=== PATIENT | male | born 1970 | race Caucasian/White ===

== ENCOUNTER 2022-07-06 12:06 | Emergency (ER) | payer OTHER ==
[2022-07-06 13:01] LABS: #Eosinphils 0.1 thou/uL (0.0-0.7); #Lymphocytes 2.2 thou/uL (1.20-3.40); #Monocytes 0.5 thou/uL (0.11-0.59); #Neutrophils 4.9 thou/uL (1.40-6.50); %Basophils 0.3 % (0.0-1.0); %Eosinophils 1.2 % (0.0-10.0); %Lymphocytes 28.7 % (21.0-51.0); %Monocytes 6.6 % (0.0-10.0); %Neutrophils 63.2 % (42.0-75.0); Hemoglobin 14.8 g/dL (14.0-18.0); Mean Corpuscular HGB CONC 33.4 g/dL (32.0-36.0); Mean Corpuscular Hemoglobin 31.1 pg (27.0-31.0); Mean Corpuscular Volume 93.2 fL (78.0-98.0); Mean Platelet Volume 6.7 fL (7.4-10.4); Platelet Count 249 thou/uL (130-400); RBC Distribution Width 11.9 % (11.5-14.5); Red Blood Cell (RBC) Count 4.75 mill/uL (4.70-6.10); White Blood Cell (WBC) Count 7.7 thou/uL (4.8-10.8)
[2022-07-06 13:02] LABS: ALT (SGPT) 48 U/L (8-55); AST (SGOT) 44 U/L (5-34); Albumin 3.9 g/dL (3.5-5.0); Alkaline Phosphatase 116 U/L (40-110); Anion Gap 13 mmol/L (10-20); BUN (Urea Nitrogen) 13 mg/dL (8.4-25.7); Bilirubin, Total 0.2 mg/dL (0.2-1.2); Calc. Creatinine Clearance 0 mL/min (70-130); Calcium 9.4 mg/dL (7.8-10.44); Carbon Dioxide 23 mmol/L (22-29); Chloride 101 mmol/L (98-107); Estimated GFR 104; Globulin 4.8 g/dL (2.4-3.5); Glucose 217 mg/dL (70-105); Potassium 3.5 mmol/L (3.5-5.1); Protein, Total 8.7 g/dL (6.0-8.3); Sodium 133 mmol/L (136-145)
[2022-07-06 14:55] LABS: Bilirubin Negative (Negative); Blood, Urine Negative (Negative); Clarity Clear (Clear); Glucose, Urine (Dipstick) 70 mg/dL (Negative); Ketone, Urine Negative (Negative); Leukocyte Negative Leu/uL (Negative); Nitrite Negative (Negative); Protein, Urine (Dipstick) Negative (Neg-Trace); Specific Gravity, Urine 1.028 (1.002-1.036); Urobilinogen Normal mg/dL (Less than 2); pH, Urine 5.5 (5.0-9.0)
== END 2022-07-06 15:34 | disposition home or self-care (01) ==
LOC: ERS 12:06
DX: M54.6 Pain in thoracic spine (principal); E11.9 Type 2 diabetes mellitus without complications; E78.00 Pure hypercholesterolemia, unspecified; F17.210 Nicotine dependence, cigarettes, uncomplicated; Z86.73 Personal history of transient ischemic attack (TIA), and cerebral infarction without residual deficits; Z79.84 Long term (current) use of oral hypoglycemic drugs; Z79.899 Other long term (current) drug therapy
CPT/HCPCS: 36415; 71045; 74176; 80053; 81003; 85025; 93005

== ENCOUNTER 2023-05-11 18:28 | Inpatient (IN) | payer OTHER ==
[2023-05-11] MEDS ORDERED: Morphine 4 MG/ML VIAL ONE (19:21)
[2023-05-11] MEDS ORDERED: Ketorolac Tromethamine 30 MG/ML VIAL ONE (19:21)
[2023-05-11 20:27] LABS: #Eosinphils 0.1 thou/uL (0.0-0.7); #Monocytes 0.5 thou/uL (0.11-0.59); #Neutrophils 4.1 thou/uL (1.40-6.50); %Basophils 0.3 % (0.0-1.0); %Eosinophils 1.1 % (0.0-10.0); %Lymphocytes 33.8 % (21.0-51.0); %Monocytes 7.5 % (0.0-10.0); Hemoglobin 14.4 g/dL (14.0-18.0); Mean Corpuscular HGB CONC 34.3 g/dL (32.0-36.0); Mean Corpuscular Hemoglobin 30.8 pg (27.0-31.0); Mean Corpuscular Volume 89.9 fl (78.0-98.0); Mean Platelet Volume 8.9 fL (7.4-10.4); Platelet Count 228 10x3/uL (130-400); RBC Distribution Width 12.9 % (11.5-14.5); Red Blood Cell (RBC) Count 4.67 mill/uL (4.70-6.10); White Blood Cell (WBC) Count 7.2 10x3/uL (4.8-10.8)
[2023-05-11 21:00] LABS: ALT (SGPT) 30 U/L (8-55); AST (SGOT) 29 U/L (5-34); Albumin 3.9 g/dL (3.5-5.0); Alkaline Phosphatase 111 U/L (40-110); Anion Gap 11 mmol/L (10-20); BUN (Urea Nitrogen) 11 mg/dL (8.4-25.7); Bilirubin, Total 0.3 mg/dL (0.2-1.2); Calc. Creatinine Clearance 0 mL/min (70-130); Calcium 9.2 mg/dL (7.8-10.44); Carbon Dioxide 24 mmol/L (22-29); Chloride 104 mmol/L (98-107); Estimated GFR 106; Glucose 128 mg/dL (70-105); Potassium 3.9 mmol/L (3.5-5.1); Protein, Total 7.9 g/dL (6.0-8.3); Sodium 135 mmol/L (136-145)
[2023-05-11] MEDS ORDERED: Diazepam 10 MG/2 ML SYRINGE ONE (22:52)
[2023-05-11] MEDS ORDERED: Ondansetron PF 4 MG/2 ML Vial IVP PRN (23:27)
[2023-05-11] MEDS ORDERED: Acetaminophen 650 MG Suppository PR PRN (23:27)
[2023-05-11] MEDS ORDERED: Dextrose 5% in Water 1,000 ML IV PRN (23:27)
[2023-05-11] MEDS ORDERED: Ondansetron ODT 4 MG TAB PO PRN (23:27)
[2023-05-11] MEDS ORDERED: Acetaminophen 325 MG TAB PO PRN (23:27)
[2023-05-11] MEDS ORDERED: Dextrose 50% Abboject 50 ML SYRINGE SLOW IVP PRN (23:27)
[2023-05-11] MEDS ORDERED: Glucagon 1 MG/ML KIT IM PRN (23:27)
[2023-05-12] VITALS: BMI 38.5
[2023-05-12 06:56] LABS: #Eosinphils 0.1 thou/uL (0.0-0.7); #Monocytes 0.4 thou/uL (0.11-0.59); %Basophils 0.7 % (0.0-1.0); %Lymphocytes 43.5 % (21.0-51.0); %Monocytes 9.2 % (0.0-10.0); %Neutrophils 44.4 % (42.0-75.0); Hematocrit 41.8 % (42.0-52.0); Mean Corpuscular HGB CONC 33.5 g/dL (32.0-36.0); Mean Corpuscular Hemoglobin 30.8 pg (27.0-31.0); Mean Corpuscular Volume 92.1 fl (78.0-98.0); Mean Platelet Volume 9.3 fL (7.4-10.4); Platelet Count 208 10x3/uL (130-400); Red Blood Cell (RBC) Count 4.54 mill/uL (4.70-6.10); White Blood Cell (WBC) Count 4.4 10x3/uL (4.8-10.8)
[2023-05-12 07:20] LABS: Anion Gap 10 mmol/L (10-20); BUN (Urea Nitrogen) 14 mg/dL (8.4-25.7); Calc. Creatinine Clearance 203 mL/min (70-130); Calcium 9.1 mg/dL (7.8-10.44); Carbon Dioxide 29 mmol/L (22-29); Chloride 103 mmol/L (98-107); Estimated GFR 105; Glucose 130 mg/dL (70-105); Potassium 3.5 mmol/L (3.5-5.1); Sodium 138 mmol/L (136-145)
[2023-05-12] MEDS: Morphine 4 MG/ML VIAL SLOW IVP PRN (20:57)
[2023-05-12] MEDS: traZODone HCl 50 MG TAB PO SCH (20:58)
[2023-05-12] MEDS: Atorvastatin Calcium 40 MG TAB PO SCH (20:59)
[2023-05-12] MEDS: HumaLOG 300 UNITS/3 ML VIAL SC PRN (21:03)
[2023-05-13] MEDS: Levothyroxine Sodium 25 MCG TAB PO SCH (05:15)
[2023-05-13] MEDS: Levothyroxine Sodium 112 MCG TAB PO SCH (05:15)
[2023-05-13] MEDS: Morphine 4 MG/ML VIAL SLOW IVP PRN ×3 (05:19→21:32)
[2023-05-13] MEDS: Citalopram 20 MG TAB PO SCH (08:43)
[2023-05-13] MEDS: Methocarbamol 500 MG TAB PO SCH (08:43)
[2023-05-13] MEDS: Furosemide 20 MG TAB PO SCH (08:43)
[2023-05-13] MEDS ORDERED: Non-Formulary Item 1 EACH (Levothyroxine Sodium [Levothyroxine Sodium] 137 MCG Tablet) PO SCH (09:00)
[2023-05-13] MEDS: methylPREDNISolone Sod Succ 40 MG VIAL IVP SCH (21:19)
[2023-05-13] MEDS: Atorvastatin Calcium 40 MG TAB PO SCH (21:23)
[2023-05-13] MEDS: traZODone HCl 50 MG TAB PO SCH (21:23)
[2023-05-13] MEDS: HumaLOG 300 UNITS/3 ML VIAL SC PRN (21:25)
[2023-05-13] MEDS: Ketorolac Tromethamine 30 MG/ML VIAL IVP PRN (21:32)
[2023-05-14] MEDS: methylPREDNISolone Sod Succ 40 MG VIAL IVP SCH ×4 (00:18→18:53)
[2023-05-14] MEDS: Levothyroxine Sodium 112 MCG TAB PO SCH (05:30)
[2023-05-14] MEDS: Levothyroxine Sodium 25 MCG TAB PO SCH (05:30)
[2023-05-14] MEDS: Ketorolac Tromethamine 30 MG/ML VIAL IVP PRN ×2 (05:30→20:17)
[2023-05-14] MEDS: HumaLOG 300 UNITS/3 ML VIAL SC PRN ×4 (05:31→20:21)
[2023-05-14] MEDS: Furosemide 20 MG TAB PO SCH (09:38)
[2023-05-14] MEDS: Citalopram 20 MG TAB PO SCH (09:38)
[2023-05-14] MEDS: Methocarbamol 500 MG TAB PO SCH (13:06)
[2023-05-14] MEDS: traZODone HCl 50 MG TAB PO SCH (20:17)
[2023-05-14] MEDS: Atorvastatin Calcium 40 MG TAB PO SCH (20:18)
[2023-05-15] MEDS: methylPREDNISolone Sod Succ 40 MG VIAL IVP SCH ×4 (00:28→18:22)
[2023-05-15] MEDS: Levothyroxine Sodium 112 MCG TAB PO SCH (05:17)
[2023-05-15] MEDS: Levothyroxine Sodium 25 MCG TAB PO SCH (05:17)
[2023-05-15] MEDS: HumaLOG 300 UNITS/3 ML VIAL SC PRN ×4 (05:18→21:34)
[2023-05-15] MEDS: Furosemide 20 MG TAB PO SCH (08:37)
[2023-05-15] MEDS: Citalopram 20 MG TAB PO SCH (08:37)
[2023-05-15] MEDS: Methocarbamol 500 MG TAB PO SCH (08:37)
[2023-05-15] MEDS: Ketorolac Tromethamine 30 MG/ML VIAL IVP PRN (12:01)
[2023-05-15] MEDS: Ketorolac Tromethamine 30 MG/ML VIAL IVP SCH (18:22)
[2023-05-15] MEDS: Morphine 4 MG/ML VIAL SLOW IVP PRN (21:25)
[2023-05-15] MEDS: traZODone HCl 50 MG TAB PO SCH (21:31)
[2023-05-15] MEDS: Atorvastatin Calcium 40 MG TAB PO SCH (21:33)
[2023-05-15] MEDS: metFORMIN 500 MG TAB PO SCH (21:33)
[2023-05-16] MEDS: methylPREDNISolone Sod Succ 40 MG VIAL IVP SCH ×3 (00:15→13:43)
[2023-05-16] MEDS: Ketorolac Tromethamine 30 MG/ML VIAL IVP SCH ×3 (00:15→13:42)
[2023-05-16] MEDS: Levothyroxine Sodium 112 MCG TAB PO SCH (05:44)
[2023-05-16] MEDS: Levothyroxine Sodium 25 MCG TAB PO SCH (05:44)
[2023-05-16] MEDS: HumaLOG 300 UNITS/3 ML VIAL SC PRN ×2 (06:22→13:43)
[2023-05-16 07:58] VITALS: BP 125/78; TEMP 97.9
[2023-05-16] MEDS: Citalopram 20 MG TAB PO SCH (09:27)
[2023-05-16] MEDS: Furosemide 20 MG TAB PO SCH (09:27)
[2023-05-16] MEDS: metFORMIN 500 MG TAB PO SCH (09:27)
[2023-05-16] MEDS: Methocarbamol 500 MG TAB PO SCH (09:28)
== END 2023-05-16 15:16 | disposition home or self-care (01) | DRG 552 ==
LOC: ERS 18:28 → T4-B 22:48 → OBSVTOIN 05-12 13:27
PROVIDERS: ADMIT Student in an Organized Health Care Education/Training Program; ATTEND Family Medicine
DX: M47.16 Other spondylosis with myelopathy, lumbar region (principal); E87.1 Hypo-osmolality and hyponatremia; E11.42 Type 2 diabetes mellitus with diabetic polyneuropathy; G89.29 Other chronic pain; F15.10 Other stimulant abuse, uncomplicated; F10.90 Alcohol use, unspecified, uncomplicated; F17.210 Nicotine dependence, cigarettes, uncomplicated; E03.9 Hypothyroidism, unspecified; E66.01 Morbid (severe) obesity due to excess calories; R56.9 Unspecified convulsions; M51.36 Other intervertebral disc degeneration, lumbar region; Z91.018 Allergy to other foods; Z79.890 Hormone replacement therapy; Z79.899 Other long term (current) drug therapy; Z98.890 Other specified postprocedural states; Z86.73 Personal history of transient ischemic attack (TIA), and cerebral infarction without residual deficits; Z68.38 Body mass index [BMI] 38.0-38.9, adult; Z79.84 Long term (current) use of oral hypoglycemic drugs; E78.00 Pure hypercholesterolemia, unspecified
CPT/HCPCS: 36415; 36416; 72100; 72131; 80048; 80053; 85025; 96372; G0378; J1650; J1815; J1885; J2270; J2920; J3360

== ENCOUNTER 2023-07-15 09:53 | Inpatient (IN) | payer OTHER ==
[2023-07-15 11:20] LABS: ALT (SGPT) 47 U/L (8-55); AST (SGOT) 45 U/L (5-34); Albumin 4.3 g/dL (3.5-5.0); Alkaline Phosphatase 128 U/L (40-110); Anion Gap 14 mmol/L (10-20); BUN (Urea Nitrogen) 14 mg/dL (8.4-25.7); Bilirubin, Total 0.2 mg/dL (0.2-1.2); Calc. Creatinine Clearance 0 mL/min (70-130); Carbon Dioxide 23 mmol/L (22-29); Estimated GFR 98; Globulin 3.3 g/dL (2.4-3.5); Potassium 4.5 mmol/L (3.5-5.1); Protein, Total 7.6 g/dL (6.0-8.3)
[2023-07-15 11:21] LABS: Troponin I Less than 0.010 ng/mL (< 0.028)
[2023-07-15 11:26] LABS: Chloride 98 mmol/L (98-107); Glucose 486 mg/dL (70-105); Sodium 130 mmol/L (136-145)
[2023-07-15 11:30] LABS: #Eosinphils 0.1 thou/uL (0.0-0.7); #Monocytes 0.4 thou/uL (0.11-0.59); #Neutrophils 3.8 thou/uL (1.40-6.50); %Basophils 0.3 % (0.0-1.0); %Lymphocytes 28.2 % (21.0-51.0); %Monocytes 7.1 % (0.0-10.0); %Neutrophils 63.1 % (42.0-75.0); Hematocrit 42.8 % (42.0-52.0); Hemoglobin 15.1 g/dL (14.0-18.0); Mean Corpuscular HGB CONC 35.3 g/dL (32.0-36.0); Mean Corpuscular Hemoglobin 31.5 pg (27.0-31.0); Mean Corpuscular Volume 89.2 fl (78.0-98.0); Mean Platelet Volume 9.4 fL (7.4-10.4); Platelet Count 211 10x3/uL (130-400); RBC Distribution Width 12.3 % (11.5-14.5); White Blood Cell (WBC) Count 6.1 10x3/uL (4.8-10.8)
[2023-07-15] MEDS ORDERED: Iopamidol-370 76% 500 ML MDV (1 ML CHARGE) ONE ×2 (14:03→14:16)
[2023-07-15] MEDS ORDERED: fentaNYL 50 mcg/mL 1 mL Vial ONE (14:19)
[2023-07-15] MEDS ORDERED: Aspirin Chewable 81 MG TAB ONE (15:27)
[2023-07-15] MEDS ORDERED: HYDROmorphone 0.5 MG/0.5 ML SYRINGE ONE (15:58)
[2023-07-15] MEDS ORDERED: Acetaminophen 325 MG TAB PO PRN (17:09)
[2023-07-15] MEDS ORDERED: Ondansetron PF 4 MG/2 ML Vial IVP PRN (17:09)
[2023-07-15] MEDS ORDERED: Ondansetron ODT 4 MG TAB PO PRN (17:09)
[2023-07-15] MEDS ORDERED: HumaLOG 300 UNITS/3 ML VIAL SC PRN (17:48)
[2023-07-15] MEDS ORDERED: Dextrose 5% in Water 1,000 ML IV PRN (17:48)
[2023-07-15] MEDS ORDERED: Glucagon 1 MG/ML KIT IM PRN (17:48)
[2023-07-15] MEDS ORDERED: Dextrose 50% Abboject 50 ML SYRINGE SLOW IVP PRN (17:48)
[2023-07-15 18:33] VITALS: BMI 38.5
[2023-07-15] MEDS: Lactated Ringer's 1,000 ML IV SCH ×2 (19:02→20:55)
[2023-07-15] MEDS: Nicotine 14 MG PATCH TD SCH ×2 (19:03→21:54)
[2023-07-15] MEDS: Senokot S 8.6-50 MG TAB PO SCH (20:53)
[2023-07-15] MEDS: Famotidine 20 MG TAB PO SCH (20:54)
[2023-07-15] MEDS: traZODone HCl 50 MG TAB PO SCH (20:54)
[2023-07-15] MEDS ORDERED: Insulin Glargine 30 UNITS/0.3 ML VIAL SC SCH (21:00)
[2023-07-15] MEDS ORDERED: Atorvastatin Calcium 40 MG TAB PO SCH (21:00)
[2023-07-15] MEDS: Morphine 4 MG/ML VIAL SLOW IVP PRN (21:15)
[2023-07-16 04:23] LABS: #Eosinphils 0.1 thou/uL (0.0-0.7); #Monocytes 0.5 thou/uL (0.11-0.59); #Neutrophils 3.7 thou/uL (1.40-6.50); %Basophils 0.5 % (0.0-1.0); %Eosinophils 1.5 % (0.0-10.0); %Monocytes 8.4 % (0.0-10.0); %Neutrophils 59.3 % (42.0-75.0); Hematocrit 41.8 % (42.0-52.0); Hemoglobin 14.6 g/dL (14.0-18.0); Mean Corpuscular HGB CONC 34.9 g/dL (32.0-36.0); Mean Corpuscular Hemoglobin 31.6 pg (27.0-31.0); Mean Corpuscular Volume 90.5 fl (78.0-98.0); Mean Platelet Volume 9.1 fL (7.4-10.4); Platelet Count 194 10x3/uL (130-400); RBC Distribution Width 12.4 % (11.5-14.5); Red Blood Cell (RBC) Count 4.62 mill/uL (4.70-6.10); White Blood Cell (WBC) Count 6.2 10x3/uL (4.8-10.8)
[2023-07-16] MEDS: Morphine 4 MG/ML VIAL SLOW IVP PRN (04:48)
[2023-07-16] MEDS: Levothyroxine Sodium 112 MCG TAB PO SCH (04:49)
[2023-07-16] MEDS: Levothyroxine Sodium 25 MCG TAB PO SCH (04:49)
[2023-07-16 04:57] LABS: Anion Gap 11 mmol/L (10-20); BUN (Urea Nitrogen) 13 mg/dL (8.4-25.7); Calc. Creatinine Clearance 214 mL/min (70-130); Calcium 9.1 mg/dL (7.8-10.44); Carbon Dioxide 27 mmol/L (22-29); Chloride 99 mmol/L (98-107); Estimated GFR 107; Glucose 281 mg/dL (70-105); Potassium 3.6 mmol/L (3.5-5.1); Sodium 133 mmol/L (136-145)
[2023-07-16] MEDS: Bupropion 150 MG SR.TAB PO SCH (07:36)
[2023-07-16] MEDS: Furosemide 20 MG TAB PO SCH (07:37)
[2023-07-16] MEDS: Famotidine 20 MG TAB PO SCH ×2 (07:37→21:09)
[2023-07-16] MEDS: Citalopram 20 MG TAB PO SCH (07:37)
[2023-07-16] MEDS: HYDROcodone/Acetaminophen 10/325 mg Tablet PO PRN ×2 (07:38→21:07)
[2023-07-16] MEDS: Senokot S 8.6-50 MG TAB PO SCH ×2 (07:39→21:07)
[2023-07-16] MEDS: Lactated Ringer's 1,000 ML IV SCH ×2 (07:42→21:14)
[2023-07-16] MEDS ORDERED: Insulin Glargine 30 UNITS/0.3 ML VIAL SC SCH ×3 (08:10→21:00)
[2023-07-16] MEDS ORDERED: Non-Formulary Item 1 EACH (Levothyroxine Sodium [Levothyroxine Sodium] 137 MCG Tablet) PO SCH (09:00)
[2023-07-16] MEDS ORDERED: Methocarbamol 500 MG TAB PO SCH (09:00)
[2023-07-16 09:51] LABS: Troponin I Less than 0.010 ng/mL (< 0.028)
[2023-07-16] MEDS ORDERED: traZODone HCl 50 MG TAB PO PRN (12:45)
[2023-07-16] MEDS: Gabapentin 100 MG CAP PO SCH ×2 (13:36→21:08)
[2023-07-16] MEDS: Methocarbamol 500 MG TAB PO SCH ×3 (13:36→21:08)
[2023-07-16] MEDS: HumaLOG 300 UNITS/3 ML VIAL SC PRN ×2 (13:38→17:06)
[2023-07-16] MEDS: Nicotine 14 MG PATCH TD SCH (17:06)
[2023-07-16 17:30] LABS: Troponin I Less than 0.010 ng/mL (< 0.028)
[2023-07-16] MEDS: Atorvastatin Calcium 10 MG TAB PO SCH (21:09)
[2023-07-16] MEDS: traZODone HCl 50 MG TAB PO SCH (21:09)
[2023-07-16] MEDS: Heparin 5,000 UNITS/ML VIAL SC SCH (21:13)
[2023-07-17] MEDS: HYDROcodone/Acetaminophen 10/325 mg Tablet PO PRN (02:30)
[2023-07-17] MEDS: Levothyroxine Sodium 25 MCG TAB PO SCH (05:20)
[2023-07-17] MEDS: Levothyroxine Sodium 112 MCG TAB PO SCH (05:20)
[2023-07-17 06:21] LABS: #Eosinphils 0.1 thou/uL (0.0-0.7); #Monocytes 0.5 thou/uL (0.11-0.59); #Neutrophils 3.2 thou/uL (1.40-6.50); %Basophils 0.7 % (0.0-1.0); %Eosinophils 1.2 % (0.0-10.0); %Lymphocytes 32.5 % (21.0-51.0); %Monocytes 9.2 % (0.0-10.0); Hematocrit 42.6 % (42.0-52.0); Hemoglobin 14.9 g/dL (14.0-18.0); Mean Corpuscular Hemoglobin 31.2 pg (27.0-31.0); Mean Corpuscular Volume 89.1 fl (78.0-98.0); Mean Platelet Volume 9.2 fL (7.4-10.4); Platelet Count 205 10x3/uL (130-400); RBC Distribution Width 12.1 % (11.5-14.5); Red Blood Cell (RBC) Count 4.78 mill/uL (4.70-6.10); White Blood Cell (WBC) Count 5.7 10x3/uL (4.8-10.8)
[2023-07-17 06:48] LABS: Anion Gap 14 mmol/L (10-20); BUN (Urea Nitrogen) 13 mg/dL (8.4-25.7); Calc. Creatinine Clearance 208 mL/min (70-130); Calcium 8.7 mg/dL (7.8-10.44); Carbon Dioxide 24 mmol/L (22-29); Chloride 100 mmol/L (98-107); Estimated GFR 106; Glucose 230 mg/dL (70-105); Potassium 4.1 mmol/L (3.5-5.1); Sodium 134 mmol/L (136-145)
[2023-07-17] MEDS: Morphine 4 MG/ML VIAL SLOW IVP PRN ×2 (08:29→14:40)
[2023-07-17] MEDS: Heparin 5,000 UNITS/ML VIAL SC SCH (08:43)
[2023-07-17] MEDS ORDERED: Famotidine/PF 20 mg/2ml Vial SLOW IVP SCH (08:45)
[2023-07-17] MEDS ORDERED: diphenhydrAMINE 50 MG/ML VIAL IVP SCH (08:45)
[2023-07-17] MEDS ORDERED: EPINEPHrine 1 MG/ML AMP IM SCH (09:00)
[2023-07-17] MEDS ORDERED: Gabapentin 300 MG CAP PO SCH (09:00)
[2023-07-17] MEDS ORDERED: Oxymetazoline HCl 0.05% (30 ML BOT) NS PRN (09:10)
[2023-07-17] MEDS: Famotidine 20 MG TAB PO SCH ×2 (09:15→21:00)
[2023-07-17] MEDS: Senokot S 8.6-50 MG TAB PO SCH ×2 (09:32→21:00)
[2023-07-17] MEDS: Insulin Glargine 30 UNITS/0.3 ML VIAL SC SCH ×2 (11:06→20:58)
[2023-07-17] MEDS: Methocarbamol 500 MG TAB PO SCH ×4 (11:06→20:59)
[2023-07-17] MEDS: Lactated Ringer's 1,000 ML IV SCH ×2 (11:06→22:57)
[2023-07-17] MEDS: Citalopram 20 MG TAB PO SCH (11:16)
[2023-07-17] MEDS: Bupropion 150 MG SR.TAB PO SCH (14:37)
[2023-07-17] MEDS: Lisinopril 2.5 MG TAB PO SCH (14:37)
[2023-07-17] MEDS: Furosemide 20 MG TAB PO SCH (14:37)
[2023-07-17] MEDS: Hydrochlorothiazide 25 MG TAB PO SCH (14:37)
[2023-07-17] MEDS: Nicotine 14 MG PATCH TD SCH (17:23)
[2023-07-17] MEDS: traZODone HCl 50 MG TAB PO SCH (20:57)
[2023-07-17] MEDS: Atorvastatin Calcium 10 MG TAB PO SCH (20:59)
[2023-07-18] MEDS: Levothyroxine Sodium 112 MCG TAB PO SCH (06:10)
[2023-07-18] MEDS: Levothyroxine Sodium 25 MCG TAB PO SCH (06:10)
[2023-07-18] MEDS ORDERED: Iopamidol-370 76% 500 ML MDV (1 ML CHARGE) ONE (09:43)
[2023-07-18] MEDS: HYDROcodone/Acetaminophen 10/325 mg Tablet PO PRN ×2 (12:24→17:52)
[2023-07-18] MEDS ORDERED: Furosemide 20 MG TAB PO SCH (12:30)
[2023-07-18] MEDS ORDERED: Insulin Glargine 30 UNITS/0.3 ML VIAL SC SCH (12:30)
[2023-07-18] MEDS ORDERED: Hydrochlorothiazide 25 MG TAB PO SCH (12:30)
[2023-07-18] MEDS: Methocarbamol 500 MG TAB PO SCH ×4 (12:30→20:29)
[2023-07-18] MEDS ORDERED: Bupropion 150 MG SR.TAB PO SCH (12:30)
[2023-07-18] MEDS: Bupropion 150 MG SR.TAB PO SCH (12:30)
[2023-07-18] MEDS ORDERED: Lisinopril 2.5 MG TAB PO SCH (12:30)
[2023-07-18] MEDS ORDERED: Citalopram 20 MG TAB PO SCH (12:30)
[2023-07-18] MEDS: Senokot S 8.6-50 MG TAB PO SCH ×2 (12:31→20:29)
[2023-07-18] MEDS: Citalopram 20 MG TAB PO SCH (12:31)
[2023-07-18] MEDS: Furosemide 20 MG TAB PO SCH (12:31)
[2023-07-18] MEDS: Hydrochlorothiazide 25 MG TAB PO SCH (12:31)
[2023-07-18] MEDS: Lisinopril 2.5 MG TAB PO SCH (12:32)
[2023-07-18] MEDS: Famotidine 20 MG TAB PO SCH ×2 (12:32→20:28)
[2023-07-18] MEDS: Insulin Glargine 30 UNITS/0.3 ML VIAL SC SCH ×2 (12:32→20:28)
[2023-07-18] MEDS: Lactated Ringer's 1,000 ML IV SCH (17:50)
[2023-07-18] MEDS: Nicotine 14 MG PATCH TD SCH (17:50)
[2023-07-18] MEDS: traZODone HCl 50 MG TAB PO SCH (20:28)
[2023-07-18] MEDS: Atorvastatin Calcium 10 MG TAB PO SCH (20:28)
[2023-07-19 05:06] LABS: #Eosinphils 0.1 thou/uL (0.0-0.7); #Monocytes 0.6 thou/uL (0.11-0.59); #Neutrophils 3.6 thou/uL (1.40-6.50); %Basophils 0.3 % (0.0-1.0); %Eosinophils 1.5 % (0.0-10.0); %Lymphocytes 30.1 % (21.0-51.0); %Monocytes 9.2 % (0.0-10.0); %Neutrophils 58.3 % (42.0-75.0); Hematocrit 44.2 % (42.0-52.0); Hemoglobin 15.6 g/dL (14.0-18.0); Mean Corpuscular HGB CONC 35.3 g/dL (32.0-36.0); Mean Corpuscular Hemoglobin 31.1 pg (27.0-31.0); Mean Platelet Volume 9.2 fL (7.4-10.4); Platelet Count 208 10x3/uL (130-400); RBC Distribution Width 12.3 % (11.5-14.5); Red Blood Cell (RBC) Count 5.02 mill/uL (4.70-6.10); White Blood Cell (WBC) Count 6.2 10x3/uL (4.8-10.8)
[2023-07-19 05:31] LABS: Anion Gap 14 mmol/L (10-20); BUN (Urea Nitrogen) 11 mg/dL (8.4-25.7); Calc. Creatinine Clearance 206 mL/min (70-130); Calcium 9.5 mg/dL (7.8-10.44); Carbon Dioxide 26 mmol/L (22-29); Chloride 98 mmol/L (98-107); Estimated GFR 106; Glucose 223 mg/dL (70-105); Potassium 3.5 mmol/L (3.5-5.1); Sodium 134 mmol/L (136-145)
[2023-07-19] MEDS: Levothyroxine Sodium 25 MCG TAB PO SCH (06:08)
[2023-07-19] MEDS: Levothyroxine Sodium 112 MCG TAB PO SCH (06:08)
[2023-07-19 08:07] VITALS: BP 129/59; TEMP 98.4
[2023-07-19] MEDS: Hydrochlorothiazide 25 MG TAB PO SCH (08:22)
[2023-07-19] MEDS: Famotidine 20 MG TAB PO SCH (08:22)
[2023-07-19] MEDS: Furosemide 20 MG TAB PO SCH (08:22)
[2023-07-19] MEDS: Methocarbamol 500 MG TAB PO SCH (08:23)
[2023-07-19] MEDS: Bupropion 150 MG SR.TAB PO SCH (08:23)
[2023-07-19] MEDS: HYDROcodone/Acetaminophen 10/325 mg Tablet PO PRN (08:23)
[2023-07-19] MEDS: Lisinopril 2.5 MG TAB PO SCH (08:23)
[2023-07-19] MEDS: Insulin Glargine 30 UNITS/0.3 ML VIAL SC SCH (08:24)
[2023-07-19] MEDS: Senokot S 8.6-50 MG TAB PO SCH (08:24)
[2023-07-19] MEDS: Citalopram 20 MG TAB PO SCH (08:24)
[2023-07-20 05:14] LABS: QuantiFERON-TB Gold Plus POSITIVE (Negative)
[2023-07-21 15:15] LABS: Brucella IgM Ab Negative (Negative)
[2023-07-21 19:36] LABS: Histoplasma Abs, Quant, DID Negative (Neg:<1:1)
== END 2023-07-19 12:10 | disposition home or self-care (01) | DRG 566 ==
LOC: ERS 09:53 → 2SW 15:59 → OBSVTOIN 07-18 18:43
PROVIDERS: ADMIT Hospitalist; ATTEND Hospitalist
DX: M89.8X8 Other specified disorders of bone, other site (principal); E11.40 Type 2 diabetes mellitus with diabetic neuropathy, unspecified; E78.5 Hyperlipidemia, unspecified; F17.210 Nicotine dependence, cigarettes, uncomplicated; M54.50 Low back pain, unspecified; E03.9 Hypothyroidism, unspecified; G89.29 Other chronic pain; Z86.73 Personal history of transient ischemic attack (TIA), and cerebral infarction without residual deficits; Z91.018 Allergy to other foods; Z79.890 Hormone replacement therapy; Z79.899 Other long term (current) drug therapy; Z79.84 Long term (current) use of oral hypoglycemic drugs; Z98.890 Other specified postprocedural states; Z86.711 Personal history of pulmonary embolism; Z71.6 Tobacco abuse counseling
CPT/HCPCS: 0042T; 36415; 36416; 70450; 70496; 70498; 71260; 71275; 72125; 72128; 74174; 74177; 78306; 80048; 80053; 84484; 85025; 86140; 86480; 86622; 86698; 87040; 87385; 93005; 93306; 96372; 96374; 96375; 96376; A9503; G0378; J0171; J1170; J1200; J1644; J1815; J2270; J2405; J3010; J7120; Q9967; S0028

== ENCOUNTER 2024-04-14 13:00 | Inpatient (IN) | payer OTHER ==
[~2024-04-14 13:00] MED LIST: Iopamidol-370 76% 500 ML MDV (1 ML CHARGE) ONE
[2024-04-14 13:54] LABS: #Basophils Less than 0.03 10x3/uL (0.0-0.2); %Basophils 0.4 % (0.0-1.0); %Eosinophils 1.1 % (0.0-10.0); %Monocytes 7.5 % (0.0-10.0); %Neutrophils 50.6 % (42.0-75.0); Hematocrit 43.2 % (42.0-52.0); Hemoglobin 14.9 g/dL (14.0-18.0); Mean Corpuscular HGB CONC 34.5 g/dL (32.0-36.0); Mean Corpuscular Hemoglobin 30.8 pg (27.0-31.0); Mean Corpuscular Volume 89.4 fL (78.0-98.0); Mean Platelet Volume 9.2 fL (7.4-10.4); Platelet Count 194 10x3/uL (130-400); RBC Distribution Width 12.2 % (11.5-14.5); Red Blood Cell (RBC) Count 4.83 mill/uL (4.70-6.10)
[2024-04-14] MEDS ORDERED: Aspirin Chewable 81 MG TAB ONE (14:01)
[2024-04-14 14:04] LABS: ALT (SGPT) 28 U/L (8-55); AST (SGOT) 31 U/L (5-34); Albumin 3.7 g/dL (3.5-5.0); Alkaline Phosphatase 93 U/L (40-110); Anion Gap 11 mmol/L (10-20); BUN (Urea Nitrogen) 10 mg/dL (8.4-25.7); Bilirubin, Total 0.6 mg/dL (0.2-1.2); CK (CPK) 101 U/L (30-200); Calc. Creatinine Clearance 0 mL/min (70-130); Calcium 9.1 mg/dL (7.8-10.44); Carbon Dioxide 24 mmol/L (22-29); Chloride 106 mmol/L (98-107); Estimated GFR 104; Globulin 3.6 g/dL (2.4-3.5); Glucose 147 mg/dL (70-105); Potassium 3.7 mmol/L (3.5-5.1); Protein, Total 7.3 g/dL (6.0-8.3); Sodium 137 mmol/L (136-145)
[2024-04-14 14:09] LABS: Troponin I 0.014 ng/mL (< 0.028)
[2024-04-14 14:14] LABS: PTT 26.8 sec (22.9-36.1); Prothrombin Time 13.4 sec (12.0-14.7)
[2024-04-14] MEDS ORDERED: hydrALAZINE 20 MG/ML VIAL SLOW IVP PRN (14:28)
[2024-04-14 14:42] LABS: Bacteria/HPF None Seen HPF (None Seen); Bilirubin Negative (Negative); Blood, Urine Negative (Negative); CAUTI Indications for Culture Immunosuppressed; Clarity Clear (Clear); Glucose, Urine (Dipstick) Greater than 1000 mg/dL (Negative); Ketone, Urine Negative (Negative); Leukocyte Negative Leu/uL (Negative); Nitrite Negative (Negative); Protein, Urine (Dipstick) Negative (Neg-Trace); RBC/HPF 0-3 HPF (0-3); Squamous Epithelial 0-3 HPF (0-3); WBC/HPF 0-3 HPF (0-3); pH, Urine 6.5 (5.0-9.0)
[2024-04-14 14:43] LABS: Specific Gravity, Urine 1.046 (1.002-1.036)
[2024-04-14 14:44] LABS: Urine Culture Reflex Yes Yes
[2024-04-14 14:46] LABS: Amphetamine Detected (NotDetected); Barbiturates Screen Not Detected (NotDetected); Benzodiazepine Screen Not Detected (NotDetected); Cocaine Metabolite Screen Not Detected (NotDetected); Methadone Not Detected (NotDetected); Methamphetamine Detected (NotDetected); Opiate Screen Not Detected (NotDetected); Oxycodone Screen Not Detected (NotDetected); Phencyclidine (PCP) Not Detected (NotDetected); THC/Cannabinoid Screen Not Detected (NotDetected); Tricyclic Screen Not Detected (NotDetected)
[2024-04-14 15:09] LABS: Hemoglobin A1c 9.3 % (4.0-6.0)
[2024-04-14 15:11] LABS: Cardiac Risk 5.2 (Less than 4.5)
[2024-04-14] MEDS ORDERED: Acetaminophen/Codeine 30-300mg Tablet ONE (15:44)
[2024-04-14] MEDS: Acetaminophen/Codeine 30-300mg Tablet PO PRN (15:48)
[2024-04-14 16:14] VITALS: BMI 35.7
[2024-04-14] MEDS: Acetaminophen 325 MG TAB PO SCH (20:14)
[2024-04-14] MEDS: Famotidine 20 MG TAB PO SCH (20:16)
[2024-04-14] MEDS: Atorvastatin Calcium 40 MG TAB PO SCH (20:16)
[2024-04-15 04:15] LABS: #Basophils 0.03 10x3/uL (0.0-0.2); %Basophils 0.6 % (0.0-1.0); %Lymphocytes 38.3 % (21.0-51.0); %Neutrophils 51.9 % (42.0-75.0); Hematocrit 40.4 % (42.0-52.0); Hemoglobin 13.9 g/dL (14.0-18.0); Mean Corpuscular HGB CONC 34.4 g/dL (32.0-36.0); Mean Corpuscular Hemoglobin 30.5 pg (27.0-31.0); Mean Corpuscular Volume 88.6 fL (78.0-98.0); Mean Platelet Volume 9.3 fL (7.4-10.4); Platelet Count 172 10x3/uL (130-400); RBC Distribution Width 12.3 % (11.5-14.5); Red Blood Cell (RBC) Count 4.56 mill/uL (4.70-6.10)
[2024-04-15 04:30] LABS: Anion Gap 9 mmol/L (10-20); BUN (Urea Nitrogen) 9 mg/dL (8.4-25.7); Calc. Creatinine Clearance 188 mL/min (70-130); Calcium 9.1 mg/dL (7.8-10.44); Carbon Dioxide 25 mmol/L (22-29); Chloride 104 mmol/L (98-107); Estimated GFR 105; Glucose 202 mg/dL (70-105); Potassium 3.3 mmol/L (3.5-5.1); Sodium 135 mmol/L (136-145)
[2024-04-15] MEDS ORDERED: Cyclobenzaprine 10 MG TAB PO PRN (07:53)
[2024-04-15] MEDS ORDERED: Dextrose 5% in Water 1,000 ML IV PRN (08:15)
[2024-04-15] MEDS ORDERED: Dextrose 50% Abboject 50 ML SYRINGE SLOW IVP PRN (08:15)
[2024-04-15] MEDS ORDERED: Glucagon 1 MG/ML KIT IM PRN (08:15)
[2024-04-15] MEDS: Enoxaparin 40 MG (0.4 mL) SYRINGE SC SCH (08:49)
[2024-04-15] MEDS: Lidocaine 4% Patch TD SCH (08:50)
[2024-04-15] MEDS: Aspirin 81 mg Enteric Coated Tablet PO SCH (08:51)
[2024-04-15] MEDS: Insulin Glargine 30 UNITS/0.3 ML VIAL SC SCH (08:51)
[2024-04-15] MEDS: Potassium Chloride 20 MEQ TAB PO SCH (13:32)
[2024-04-15] MEDS: Sodium Chloride 0.9% 1,000 ML IV SCH (13:33)
[2024-04-15] MEDS: Transdermal Patch Removal TOP SCH (21:40)
[2024-04-16] MEDS: Levothyroxine Sodium 112 MCG TAB PO SCH (06:12)
[2024-04-16] MEDS: Levothyroxine Sodium 25 MCG TAB PO SCH (06:13)
[2024-04-16 13:28] VITALS: BP 115/69; TEMP 98.1
== END 2024-04-16 13:40 | disposition home or self-care (01) | DRG 65 ==
LOC: SUATTDRO 13:00 → ERS 13:00 → ERHOLD 14:35 → 2SE 18:35 → OBSVTOIN 04-15 12:09
PROVIDERS: ADMIT Internal Medicine; ATTEND Internal Medicine
DX: I63.9 Cerebral infarction, unspecified (principal); G81.94 Hemiplegia, unspecified affecting left nondominant side; E03.9 Hypothyroidism, unspecified; Z79.84 Long term (current) use of oral hypoglycemic drugs; F15.10 Other stimulant abuse, uncomplicated; I10 Essential (primary) hypertension; R47.1 Dysarthria and anarthria; M47.816 Spondylosis without myelopathy or radiculopathy, lumbar region; E11.9 Type 2 diabetes mellitus without complications; E66.9 Obesity, unspecified; G89.29 Other chronic pain; M54.9 Dorsalgia, unspecified; Z91.018 Allergy to other foods; Z79.890 Hormone replacement therapy; Z88.8 Allergy status to other drugs, medicaments and biological substances; Z79.899 Other long term (current) drug therapy; Z79.4 Long term (current) use of insulin; Z79.82 Long term (current) use of aspirin; Z71.51 Drug abuse counseling and surveillance of drug abuser; Z68.35 Body mass index [BMI] 35.0-35.9, adult
CPT/HCPCS: 0042T; 36415; 36416; 70450; 70496; 70498; 71045; 72100; 80048; 80053; 80061; 80306; 81001; 82550; 83036; 84484; 85025; 85610; 85730; 87086; 93005; 96372; G0378; J1650; J1815; J7050; Q9967